=== PATIENT | male | born 1950 | race Caucasian/White ===

== ENCOUNTER → 2019-09-15 | Outpatient (CLI) | payer OTHER ==
[~2019-09-15] MED LIST: CRESTOR10 MG PO; METFORMIN500 MG PO; MULTIVITAMIN1 SGL PO; NAPROXEN500 M1 PO; NEXIUM40 MG PO; TRICOR145 MG PO; TYLENOL W/CODEI1 TA7 PO; VENTOLIN H0.09 MG/AC IH
[2019-09-15 09:04] LABS: ALBUMIN 3.1 gm/dl (3.1-4.5); ALKALINE PHOSPHATASE 159 U/L (45-117); BUN 17 mg/dl (7-24); CHLORIDE 102 mmol/L (98-107); CREATININE 0.97 mg/dL (0.70-1.30); POTASSIUM 4.4 mmol/L (3.5-5.1); SGOT/AST 14 IU/L (3-35); SGPT/ALT 22 U/L (12-78); SODIUM 137 mmol/L (136-145); TOTAL PROTEIN 6.5 gm/dL (6.4-8.2)
== END | disposition home or self-care (01) ==
LOC: LAB 07:45
PROVIDERS: Internal Medicine Endocrinology, Diabetes & Metabolism
DX: M48.062 Spinal stenosis, lumbar region with neurogenic claudication (principal); G83.4 Cauda equina syndrome; E27.8 Other specified disorders of adrenal gland; Z98.1 Arthrodesis status

== ENCOUNTER → 2024-12-22 | Outpatient (CLI) | payer OTHER | END | disposition home or self-care (01) | LOC: RAD 09:33 | PROVIDERS: ATTEND Internal Medicine Endocrinology, Diabetes & Metabolism | DX: Z13.820 Encounter for screening for osteoporosis (principal) ==